=== PATIENT | female | born 1940 | race Caucasian/White ===

== ENCOUNTER 2016-12-11 07:18 | Emergency (ER) | payer OTHER ==
[~2016-12-11] VITALS: Ht 160 cm; Wt 57.8 kg
[~2016-12-11 07:18] MED LIST: ALBUAER2 INH; AMLO2.5T PO; CALCTAB65 PO; CHOL20009 PO; FLVHFA110 INH; LIOT5TAB PO; NXM/40 PO; POLYSOL OP; PRM625 PO
[2016-12-11 07:25] VITALS: TEMP 36.5; Ht 160 cm; Wt 57.8 kg
[2016-12-11] MEDS ORDERED: SODIUM CHLORIDE 0.9% 1000ML 500 ML IV STA (08:09)
--- NOTE | 2016-12-11 08:09 | EMERGENCY ROOM VISIT NOTE ---
History Report prepared by Yani: Susy Matute Under the Supervision of: Anna Sierra.O. First contact with patient: 07:42 Chief Complaint: FLU LIKE SX Stated Complaint: WEAK,SHAKY,CHILLED,HEADACHE,ACHE EVERYWHERE History of Present Illness The patient is a 76 year old female who presents to the Emergency Room with complaints of a persistent illness that began Thursday. She currently rates her discomfort as a 5/10 in severity. The patient states that she has been sick intermittently since October. She states that she was first told that she probably had flu A, but denies being tested for it. The patient states that then she developed bronchitis. She states that then throughout all of November she had asthma complications. The patient states that she was on Prednisone throughout all of November along with her typical asthma nebulizers. She states that one week ago she breathing returned to normal. The patient states that Thursday she began experiencing body aches, nausea, weakness, shakiness, and chills. She states that yesterday she had a decrease in appetite, but states that she has continued to take small sips of fluid. The patient states that she got a flu shot in the fall. She denies any sick contacts. The patient denies any chest pain, cough, rhinorrhea, fever, shortness of breath, vomiting, diarrhea, extremity swelling, or urinary urgency. She states that she has had several kidney infections and UTIs. The patient states that her symptoms today feel similar to the symptoms she experiences with UTIs, but states that she does not have the urinary symptoms. The patient notes a history of one episode of atrial fibrillation three years ago. She denies being on any blood thinners. The patient states that she has a history of a cholecystectomy, and states that at one incision she recently noticed a bump. Source of History: patient Onset: Thursday Position: other (global) Symptom Intensity: 5/10 Quality: other (illness) Timing: other (persistent) Associated Symptoms: + chills, + nausea, + weakness, No SOB, No cough, No diarrhea, No fevers, No urinary symptoms, No vomiting Note: Associated Symptoms: shakiness, body aches Review of Systems See HPI for pertinent positives & negatives. A total of 10 systems reviewed and were otherwise negative. 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) (4) MVP (mitral valve prolapse) (5) PAC (premature atrial contraction) Surgical Problems: (1) History of cholecystectomy Family History FH: cancer FH: gallbladder disease FH: lung disease Hypertension Social History Smoking Status: Never Smoker Alcohol Use: none Drug Use: none Marital Status: Housing Status: lives alone Occupation Status: retired Current/Historical Medications Scheduled Amlodipine (Norvasc), 2.5 MG PO QAM Calcium Carbonate-Vitamin D (Calcium 500 + D), 1 TAB PO QAM Cholecalciferol (Vitamin D), 1 TAB PO QAM Esomeprazole Magnesium (Nexium), 40 MG PO QPM Estrogens, Conjugated (Premarin), 0.625 MG PO QAM Fluticasone Propionate (Flovent Hfa), 2 PUFFS INH BID Liothyronine Sodium (Cytomel), 2.5 MCG PO QAM Scheduled PRN Albuterol (Ventolin), 1 PUFFS INH QID PRN Allergies Coded Allergies: Penicillins (Verified Allergy, Severe, ANAPHYLAXIS, 12/11/16) Quinolones (Verified Allergy, Mild, RASH, 12/11/16) Sulfa Drugs (Verified Allergy, Mild, RASH, 12/11/16) Tetracyclines (Verified Allergy, Mild, RASH, 12/11/16) Aspirin (Verified Allergy, Unknown, SHORTNESS OF BREATH, 12/11/16) Metoprolol (Verified Allergy, Unknown, SHORTNESS OF BREATH, 12/11/16) Physical Exam Vital Signs Date Time Temp Pulse Resp B/P Pulse Ox O2 Delivery O2 Flow Rate FiO2 12/11/16 11:13 103 16 133/76 98 Room Air 12/11/16 11:10 92 162/87 95 146/79 103 133/76 12/11/16 09:29 96 16 157/96 98 12/11/16 07:25 36.5 121 18 143/71 98 Room Air Physical Exam GENERAL: alert, well appearing, well nourished, no distress, non-toxic EYE EXAM: normal conjunctiva, PERRL and EOM's grossly intact OROPHARYNX: no exudate, no erythema, lips, buccal mucosa, and tongue normal and mucous membranes are moist NECK: supple, no nuchal rigidity, no adenopathy, non-tender LUNGS: Clear to auscultation, no wheezing, rhonchi or rales. Normal chest wall mechanics HEART: no murmurs, S1 normal and S2 normal ABDOMEN: abdomen soft, non-tender, normo-active bowel sounds, no masses, no rebound or guarding. Well healed surgical scars noted without induration/ drainage/erythema. BACK: Back is symmetrical on inspection and there is no deformity, no midline tenderness, no CVA tenderness. SKIN: no rashes and no bruising UPPER EXTREMITIES: upper extremities are grossly normal. LOWER EXTREMITIES: No pitting edema. NEURO EXAM: Normal sensorium, cranial nerves II-XII grossly intact, normal speech, no gross weakness of arms, no gross weakness of legs. Medical Decision & Procedures ER Provider Diagnostic Interpretation: US:Per my review, radiologist interpretation. ABDOMINAL ULTRASOUND, RIGHT UPPER QUADRANT HISTORY: Pain. Nausea. elevated lifts. COMPARISON: None. FINDINGS: Pancreas: The pancreas demonstrates a normal echotexture. Liver: Unremarkable. Gallbladder: Surgically absent CBD: 5 mm Right kidney: No hydronephrosis. IMPRESSION: Normal study status post cholecystectomy Electronically signed by: Aldo Delong M.D. 12/11/2016 10:46 AM Dictated Date/Time: 12/11/2016 10:45 AM Laboratory Results 12/11/16 08:25 Red Blood Count 4.00, Mean Corpuscular Volume 90.8, Mean Corpuscular Hemoglobin 30.0, Mean Corpuscular Hemoglobin Concent 33.1, Mean Platelet Volume 8.7, Neutrophils (%) (Auto) 69.6, Lymphocytes (%) (Auto) 16.7, Monocytes (%) (Auto) 10.0, Eosinophils (%) (Auto) 2.7, Basophils (%) (Auto) 0.4, Neutrophils # (Auto ) 5.70, Lymphocytes # (Auto) 1.37, Monocytes # (Auto) 0.82, Eosinophils # (Auto ) 0.22, Basophils # (Auto) 0.03 12/11/16 08:25 Test 12/11/16 07:41 12/11/16 08:25 12/11/16 08:27 Urine Color YELLOW Urine Appearance CLOUDY (CLEAR) Urine pH 6.5 (4.5-7.5) Urine Specific [place] 1.006 (1.000-1.030) Urine Protein NEG (NEG) Urine Glucose (UA) NEG (NEG) Urine Ketones NEG (NEG) Urine Occult Blood NEG (NEG) Urine Nitrite NEG (NEG) Urine Bilirubin NEG (NEG) Urine Urobilinogen NEG (NEG) Urine Leukocyte Esterase NEG (NEG) Urine WBC (Auto) 0 /hpf (0-5) Urine RBC (Auto) 0-4 /hpf (0-4) Urine Hyaline Casts (Auto) 0 /lpf (0-5) Urine Epithelial Cells (Auto) >30 /lpf (0-5) Urine Bacteria (Auto) NEG (NEG) White Blood Count 8.19 K/uL (4.8-10.8) Red Blood Count 4.00 M/uL (4.2-5.4) Hemoglobin 12.0 g/dL (12.0-16.0) Hematocrit 36.3 % (37-47) Mean Corpuscular Volume 90.8 fL (80-100) Mean Corpuscular Hemoglobin 30.0 pg (25-34) Mean Corpuscular Hemoglobin Concent 33.1 g/dl (32-36) Platelet Count 337 K/uL (130-400) Mean Platelet Volume 8.7 fL (7.4-10.4) Neutrophils (%) (Auto) 69.6 % Lymphocytes (%) (Auto) 16.7 % Monocytes (%) (Auto) 10.0 % Eosinophils (%) (Auto) 2.7 % Basophils (%) (Auto) 0.4 % Neutrophils # (Auto) 5.70 K/uL (1.4-6.5) Lymphocytes # (Auto) 1.37 K/uL (1.2-3.4) Monocytes # (Auto) 0.82 K/uL (0.11-0.59) Eosinophils # (Auto) 0.22 K/uL (0-0.5) Basophils # (Auto) 0.03 K/uL (0-0.2) RDW Standard Deviation 44.0 fL (36.4-46.3) RDW Coefficient of Variation 13.2 % (11.5-14.5) Immature Granulocyte % (Auto) 0.6 % Immature Granulocyte # (Auto) 0.05 K/uL (0.00-0.02) Anion Gap 10.0 mmol/L (3-11) Est Creatinine Clear Calc Drug Dose 55.7 ml/min Estimated GFR () 96.9 Estimated GFR (Non- 83.6 BUN/Creatinine Ratio 12.6 (10-20) Calcium Level 8.2 mg/dl (8.5-10.1) Total Bilirubin 0.5 mg/dl (0.2-1) Aspartate Amino Transf (AST/SGOT) 47 U/L (15-37) Alanine Aminotransferase (ALT/SGPT) 61 U/L (12-78) Alkaline Phosphatase 139 U/L (45-117) Total Creatine Kinase 78 U/L (26-192) Troponin I < 0.015 ng/ml (0-0.045) Total Protein 6.6 gm/dl (6.4-8.2) Albumin 3.0 gm/dl (3.4-5.0) Globulin 3.6 gm/dl (2.5-4.0) Albumin/Globulin Ratio 0.8 (0.9-2) Chemistry Specimen Hemolysis Influenza Type A Antigen Neg for Influ A (NEG) Influenza Type B Antigen Neg for Influ B (NEG) Laboratory results per my review. Medications Administered Medications (Trade) Dose Ordered Sig/Delmi Route Start Time Stop Time Status Last Admin Dose Admin Sodium Chloride (Nss 1000ml) 500 ml @ 999 mls/hr Q31M STAT IV 12/11/16 08:09 12/11/16 08:39 DC 12/11/16 08:09 999 MLS/HR Ibuprofen (Advil Tab) 400 mg NOW STAT PO 12/11/16 11:34 12/11/16 11:35 DC 12/11/16 11:39 400 MG ECG Indication: weakness Rate (beats per minute): 96 Rhythm: sinus rhythm Findings: no acute ischemic change, other (normal axis, normal intervals) ED Course 0749: The patient was evaluated in room B5. A complete history and physical examination was performed. 0809: Ordered Sodium Chloride 500 ml @ 999 mls/hr IV. 0939: I reevaluated the patient and she is doing well. I discussed the lab findings with her and she is going to have an ultrasound. 1118: Upon reevaluation, the patient is feeling better.I discussed my findings with the patient and she understands and agrees with the treatment plan. She is going to follow up with her thread inspector tomorrow and will return with any worsening symptoms Based on the patients age, coexisting illnesses, exam and lab findings the decision to treat as an outpatient was made. The patient remained stable while under my care. The patient appeared well at the time of discharge. 1141: I discussed the patient with Case Management and they are going to call and check on the patient tomorrow. Medical Decision The patient is a 76 year old female who presents to the ED with complaints of an illness. Patient markedly improved with IV hydration. Tolerating oral fluids, mildly orthostatic initially however improved with continued oral rehydration. Patient's labs reassuring. No recurrence of any symptoms to suggest asthma exacerbation/arthritis/pneumonia. Patient afebrile here. Doubt bacteremia/sepsis, no evidence of rhabdomyolysis, no evidence of renal dysfunction or electrolyte abnormality. Doubt neurologic or cardiac etiology. Patient offered admission for continued monitoring, but would like to go home and keep her regular scheduled pulmonology appointment tomorrow. Discussed with the patient at length symptoms were to return for, close follow-up with her family doctor when she verbalized understanding was agreeable to plan. Called case management to follow-up with the patient tomorrow as a precaution given the patient does live alone. Impression Primary Impression: Dehydration Additional Impression: Myalgia Scribe Attestation The scribe's documentation has been prepared under my direction and personally reviewed by me in its entirety. I confirm that the note above accurately reflects all work, treatment, procedures, and medical decision making performed by me. Departure Information Dispostion Home / Self-Care Referrals America King CRNP (PCP) Forms HOME CARE DOCUMENTATION FORM, IMPORTANT VISIT INFORMATION Patient Instructions My [facility] Additional Instructions Please continue to sip clear liquids including water at frequent intervals to stay well-hydrated. Please continue regular medications as prescribed. Please continue to monitor for any changes in her condition and if you feel worse please return to the ER immediately. Problem Qualifiers
[2016-12-11 09:05] LABS: BASO % 0.4 %; BASO ABS # 0.03 K/uL (0-0.2); COMPLETE YES; EOS % 2.7 %; HEMATOCRIT 36.3 % (37-47); IG% 0.6 %; LYMPH % 16.7 %; LYMPH ABS # 1.37 K/uL (1.2-3.4); MEAN CELL VOLUME 90.8 fL (80-100); MEAN CORPUSCULAR HGB CONC 33.1 g/dl (32-36); MEAN PLATELET VOLUME 8.7 fL (7.4-10.4); NEUT % 69.6 %; PLATELET COUNT 337 K/uL (130-400); WHITE BLOOD COUNT 8.19 K/uL (4.8-10.8)
[2016-12-11 09:22] LABS: URINE APPEARANCE CLOUDY (CLEAR); URINE BILIRUBIN NEG (NEG); URINE COLOR YELLOW; URINE EPITHELIAL CELL AUTO >30 /lpf (0-5); URINE NITRITE NEG (NEG); URINE PH 6.5 (4.5-7.5); URINE SPECIFIC GRAVITY 1.006 (1.000-1.030); UROBILINOGEN NEG (NEG); ZZUR CULT IF INDIC CLEAN CATCH NO
[2016-12-11 09:27] LABS: MANUAL MICROSCOPIC REQUIRED? NO; REVIEW REQ? NO
[2016-12-11 09:31] LABS: ALB/GLOB RATIO 0.8 (0.9-2); ALKALINE PHOSPHATASE 139 U/L (45-117); ALT/SGPT 61 U/L (12-78); AST/SGOT 47 U/L (15-37); BLOOD UREA NITROGEN 9 mg/dl (7-18); BUN/CREATININE RATIO 12.6 (10-20); CALCIUM 8.2 mg/dl (8.5-10.1); CARBON DIOXIDE 24 mmol/L (21-32); CHLORIDE 104 mmol/L (98-107); GLUCOSE 82 mg/dl (70-99); POTASSIUM 3.9 mmol/L (3.5-5.1); SODIUM 138 mmol/L (136-145)
--- NOTE | 2016-12-11 10:47 | DIAGNOSTIC IMAGING REPORT ---
ABDOMINAL ULTRASOUND, RIGHT UPPER QUADRANT HISTORY: Pain. Nausea. elevated lifts. COMPARISON: None. FINDINGS: Pancreas: The pancreas demonstrates a normal echotexture. Liver: Unremarkable. Gallbladder: Surgically absent CBD: 5 mm Right kidney: No hydronephrosis. IMPRESSION: Normal study status post cholecystectomy Electronically signed by: Aldo Delong M.D. 12/11/2016 10:46 AM Dictated Date/Time: 12/11/2016 10:45 AM
[2016-12-11 11:13] VITALS: BP 133/76; PULSE 103; O2SAT 98
[2016-12-11] MEDS ORDERED: IBUPROFEN 200 MG TAB PO STA (11:34)
== END 2016-12-11 11:46 | disposition home or self-care (01) ==
LOC: C.EDB 07:19
DX: E86.0 Dehydration (principal); M79.1 Myalgia; I48.91 Unspecified atrial fibrillation; I10 Essential (primary) hypertension; I05.9 Rheumatic mitral valve disease, unspecified; Z90.49 Acquired absence of other specified parts of digestive tract; Z79.899 Other long term (current) drug therapy; Z88.0 Allergy status to penicillin; Z88.2 Allergy status to sulfonamides; Z88.6 Allergy status to analgesic agent; Z88.8 Allergy status to other drugs, medicaments and biological substances; Z80.9 Family history of malignant neoplasm, unspecified; Z83.79 Family history of other diseases of the digestive system; Z82.49 Family history of ischemic heart disease and other diseases of the circulatory system

== ENCOUNTER 2017-02-18 15:00 | Emergency (ER) | payer OTHER ==
[~2017-02-18] VITALS: Ht 160.7 cm; Wt 55.1 kg
[~2017-02-18 15:00] MED LIST changes: -POLYSOL OP
[2017-02-18 15:07] VITALS: TEMP 36.7; Ht 160.7 cm; Wt 55.1 kg
[2017-02-18] MEDS ORDERED: SODIUM CHLORIDE 0.9% 1000ML 500 ML IV STA (16:49)
[2017-02-18] MEDS ORDERED: SODIUM CHLORIDE 0.9% 1000ML 1,000 ML IV STA (16:49)
[2017-02-18 17:22] LABS: PARTIAL THROMBOPLASTIN RATIO 1.2; PROTHROMBIN TIME (PATIENT) 10.3 SECONDS (9.0-12.0)
[2017-02-18 17:24] LABS: BASO % 0.4 %; BASO ABS # 0.03 K/uL (0-0.2); COMPLETE YES; HEMATOCRIT 38.6 % (37-47); IG% 0.1 %; LYMPH % 43.4 %; LYMPH ABS # 3.04 K/uL (1.2-3.4); MEAN CELL VOLUME 90.6 fL (80-100); MEAN CORPUSCULAR HEMOGLOBIN 30.3 pg (25-34); MEAN CORPUSCULAR HGB CONC 33.4 g/dl (32-36); MEAN PLATELET VOLUME 9.1 fL (7.4-10.4); MONO % 8.6 %; NEUT % 45.5 %; PLATELET COUNT 296 K/uL (130-400); RED BLOOD COUNT 4.26 M/uL (4.2-5.4)
[2017-02-18 17:35] LABS: ALT/SGPT 23 U/L (12-78); BLOOD UREA NITROGEN 16 mg/dl (7-18); BUN/CREATININE RATIO 21.8 (10-20); CARBON DIOXIDE 27 mmol/L (21-32); CHLORIDE 104 mmol/L (98-107); CREATININE 0.72 mg/dl (0.60-1.20); GLUCOSE 81 mg/dl (70-99); MAGNESIUM 2.2 mg/dl (1.8-2.4); POTASSIUM 3.4 mmol/L (3.5-5.1); SODIUM 141 mmol/L (136-145)
[2017-02-18 17:37] LABS: URINE APPEARANCE CLEAR (CLEAR); URINE BILIRUBIN NEG (NEG); URINE COLOR YELLOW; URINE EPITHELIAL CELL AUTO >30 /lpf (0-5); URINE NITRITE NEG (NEG); URINE SPECIFIC GRAVITY 1.019 (1.000-1.030); UROBILINOGEN NEG (NEG)
[2017-02-18 17:41] LABS: MANUAL MICROSCOPIC REQUIRED? NO; REVIEW REQ? NO
--- NOTE | 2017-02-18 17:43 | DIAGNOSTIC IMAGING REPORT ---
SINGLE VIEW CHEST CLINICAL HISTORY: Generalized weakness. FINDINGS: An AP, portable, upright chest radiograph is compared to study dated 09/28/2015. The examination is degraded by portable technique and patient rotation. The heart is enlarged and there is atherosclerotic calcification of the thoracic aorta. Pulmonary vasculature is noncongested. Chronic interstitial thickening is unchanged. There is no airspace consolidation or large pleural effusion. There is minimal left basilar atelectasis. No pneumothorax is seen. The skeletal structures are osteopenic. The bony thorax is grossly intact. IMPRESSION: Cardiomegaly with no active disease in the chest. Electronically signed by: Len Amaya M.D. 02/18/2017 5:42 PM Dictated Date/Time: 02/18/2017 5:41 PM
[2017-02-18 17:45] LABS: ALB/GLOB RATIO 1.2 (0.9-2); ALKALINE PHOSPHATASE 66 U/L (45-117); AST/SGOT 19 U/L (15-37); CKMB/CK RATIO 1.2 (0-3.0)
[2017-02-18] MEDS ORDERED: FAMO20TA11 PO (17:55)
[2017-02-18 18:07] VITALS: PULSE 68; O2SAT 99
[2017-02-18 18:31] VITALS: BP 170/85
--- NOTE | 2017-02-18 20:15 | DIAGNOSTIC IMAGING REPORT ---
CT SCAN OF THE ABDOMEN AND PELVIS WITHOUT IV CONTRAST CLINICAL HISTORY: Generalized abdominal pain. Melanotic stool. COMPARISON STUDY: Abdominal ultrasound dated 12/11/2016. TECHNIQUE: CT scan of the abdomen and pelvis is performed from the lung bases to the proximal femora. Images are reviewed in the axial, sagittal, and coronal planes. IV contrast was not administered for this examination as per the referring clinician. Note that the examination was performed in suboptimal fashion without IV contrast. Oral contrast was utilized. Automated dose control exposure was utilized. CT DOSE: 259.80 mGy.cm FINDINGS: Lung bases: The heart is normal in size and without pericardial effusion. A fat-containing Bochdalek hernia is noted at the right lung base. There is bibasilar scarring versus atelectasis. No airspace consolidation or pleural effusion is seen. Liver: The unenhanced liver is normal in size, contour, and attenuation. There is no intrahepatic biliary ductal dilatation. Gallbladder: Surgically absent. Spleen: Normal in size and attenuation. Pancreas: The unenhanced pancreas is moderately atrophic and grossly unremarkable. Adrenal glands: Unremarkable. Kidneys: The unenhanced kidneys demonstrate mild cortical atrophy and are without hydronephrosis. There are no renal calculi identified. There is no evidence of contour deforming renal mass lesion. Abdominal vasculature: The abdominal aorta is normal in course and caliber. Bowel: The small bowel and colon are normal in course and caliber. There is diverticulosis of the right colon without CT evidence of acute diverticulitis. The appendix is not clearly identified. Peritoneum: There is no intraperitoneal free air or abdominal ascites. There is a small fat-containing umbilical hernia. Lymphadenopathy: None. Pelvic viscera: The bladder is normal in appearance. The uterus is surgically absent. No adnexal lesion is seen. There is a 2.5 cm ovoid low-density left presacral soft tissue lesion seen on image #[id number]. Skeletal structures: The skeletal structures are osteopenic. There is mild to moderate lumbar sacral spondylosis. There is a mild and age indeterminant superior endplate compression deformity of T10. No lytic or blastic lesions are seen. IMPRESSION: 1. Suboptimal examination without IV contrast. 2. There are no acute infectious or inflammatory findings in abdomen or pelvis. 3. There is a mild and age indeterminant superior endplate compression deformity of T10. Correlate for point tenderness at this site. 4. There is a 2.5 cm ovoid low-density left presacral soft tissue lesion. 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 If further evaluation is desired then a nonemergent contrast-enhanced MRI of the sacrum would be appropriate. 5. Diverticulosis of the right colon without CT evidence of acute diverticulitis. 6. Additional findings as above. Electronically signed by: Len Amaya M.D. 02/18/2017 8:14 PM Dictated Date/Time: 02/18/2017 8:05 PM
--- NOTE | 2017-02-18 20:33 | EMERGENCY ROOM VISIT NOTE ---
History First contact with patient: 16:19 Chief Complaint: GI ASSESSMENT Stated Complaint: DIGESTIVE/WEAK Nursing Triage Summary: Patient presents to triage with c/o tarry stools for the last week States she was seen in December for weakness by the ED and since then her hemoglobin and hematocrit have been low as an outpatient She reprots that she is on iron History of Present Illness Patient is a 76-year-old white female with past medical history significant for hypertension, A. fib (not presently anticoagulated), hypertension, GERD/Jean' s esophagus, asthma and bronchiectasis, among other problems who presents to emergency department for evaluation of tarry stools and weakness over the last 3 -4 days. The patient reports that she has been feeling poorly for the last several months. She was ill for the first part of this year for primarily respiratory issues. She is followed by Dr. Cuba with heme/onc for MGUS, and in follow-up with him, had B found to be mildly anemic in December of this year. She was started on iron replacement 325 mg daily in January. Most recent blood work had shown her H&H had improved. Patient reports noticing dark, tarry stools 2 days ago. She denies any diarrhea or grossly bloody stools. She states that the stools have been formed, and today they were 50% brown and normal and 50% tarry. She has been generally weak for some time, she states similar to when she was seen in our emergency department in December. Today she had a near syncopal episode walking into the hair salon. She states that she felt poorly when she got out of the car and walked into the salon and sat down. She felt better after a soda and roughly 10 minutes of being of sitting. She continues to note primarily GI issues. She states that she has discomfort from her mid sternal to her epigastric area. She has pain after she eats, and has been only eating rice, bananas, ice cream and drinking Boost supplements. She is status post cholecystectomy. She is on Nexium twice a day. She had an EGD around a year ago which showed stable Jean's disease. Colonoscopy 2 years ago was clear. She has a history of A. fib, but is not presently on any anticoagulation, she has an an aspirin allergy, and could not tolerate Xarelto and Eliquis. She was having some shortness of breath earlier in the year and had a negative stress test last week, and a CT scan which showed early, mild bronchiectasis. Patient denies any nausea or vomiting. She presently rates her discomfort a 0/10. She is planning on driving cross-country with her daughter to relocate to [place] tomorrow. Review of Systems Review of systems as per HPI. All other systems reviewed were negative. 10 systems reviewed. Past Medical/Surgical History Medical Problems: (1) A-fib (2) Asthma, Unspecified (3) Jean's esophagus (4) Bronchiectasis (5) Concussion (6) Dehydration (7) HTN (hypertension) (8) Hypertension (9) Hypothyroidism, Unspecified (10) MGUS (monoclonal gammopathy of unknown significance) (11) MVP (mitral valve prolapse) (12) Myalgia (13) PAC (premature atrial contraction) (14) Shoulder pain (15) Weakness Surgical Problems: (1) History of cholecystectomy (2) History of hysterectomy Electronic medical records are reviewed and summarized as above/below. See Problem List. Family History FH: cancer FH: gallbladder disease FH: lung disease Hypertension Social History Smoking Status: Never Smoker Alcohol Use: none Drug Use: none Marital Status: Housing Status: lives alone Occupation Status: retired Current/Historical Medications Scheduled Amlodipine (Norvasc), 2.5 MG PO QAM Calcium Carbonate-Vitamin D (Calcium 500 + D), 1 TAB PO QAM Cholecalciferol (Vitamin D), 1 TAB PO QAM Esomeprazole Magnesium (Nexium), 40 MG PO QPM Estrogens, Conjugated (Premarin), 0.625 MG PO QAM Fluticasone Propionate (Flovent Hfa), 2 PUFFS INH BID Liothyronine Sodium (Cytomel), 2.5 MCG PO QAM Scheduled PRN Albuterol (Ventolin), 1 PUFFS INH QID PRN Miscellaneous Medications Famotidine (Pepcid), 20 MG PO Allergies Coded Allergies: Penicillins (Verified Allergy, Severe, ANAPHYLAXIS, 12/11/16) Quinolones (Verified Allergy, Mild, RASH, 12/11/16) Sulfa Drugs (Verified Allergy, Mild, RASH, 12/11/16) Tetracyclines (Verified Allergy, Mild, RASH, 12/11/16) Aspirin (Verified Allergy, Unknown, SHORTNESS OF BREATH, 12/11/16) Metoprolol (Verified Allergy, Unknown, SHORTNESS OF BREATH, 12/11/16) Physical Exam Vital Signs Date Time Temp Pulse Resp B/P Pulse Ox O2 Delivery O2 Flow Rate FiO2 02/18/17 18:31 170/85 02/18/17 18:07 68 19 99 02/18/17 18:03 162/80 02/18/17 17:37 64 17 166/98 100 02/18/17 17:37 63 166/98 100 02/18/17 17:20 66 02/18/17 17:08 61 169/90 65 173/87 65 180/103 02/18/17 15:07 36.7 78 18 136/91 97 Room Air Physical Exam CONSTITUTIONAL: Patient is a thin, well-appearing 76-year-old white female who is awake and alert and in no acute distress. EYES: Pupils equal, round, reactive to light and accommodation. EOMs intact without nystagmus. Sclera are anicteric. ENT: Tympanic membranes intact, with normal landmarks. External canals are clear. Oral and nasopharynx are clear. Mucous membranes are moist, no lesions , tongue and gums appear normal. NECK: No bruits auscultated. Supple without lymphadenopathy. No thyromegaly. No meningeal signs. Full active range of motion without discomfort. CARDIOVASCULAR: Irregular rate and rhythm, with normal S1 and S2, no murmur or gallop or rub is heard. No carotid bruits auscultated. No JVD. Peripheral pulses easy to palpable. RESPIRATORY: Breath sounds equal and clear to auscultation without wheezes, rales, or rhonchi heard. Full and equal chest expansion without accessory muscle use or retractions. GI: Bowel sounds are present. Abdomen is soft, nondistended, slightly tender in the upper abdomen in the epigastric region. No organomegaly. No pulsatile masses. No guarding or rebound. RECTAL EXAM: No masses or tenderness, normal rectal tone. There is no stool in the rectal vault, Hemoccult testing is negative. MUSCULOSKELETAL: Full range of motion of extremities x 4 with good strength. No cyanosis, edema, joint tenderness or swelling. No deformity. INTEGUMENTARY: No lesions or rash, normal skin turgor. NEUROLOGICAL: Alert, oriented, and cooperative. Cranial nerves, sensation and strength grossly intact. Pupils round, equal, and react to light, EOMs are full. LYMPH: No lymphadenopathy. Medical Decision & Procedures ER Provider Diagnostic Interpretation: SINGLE VIEW CHEST CLINICAL HISTORY: Generalized weakness. FINDINGS: An AP, portable, upright chest radiograph is compared to study dated 09/28/2015. The examination is degraded by portable technique and patient rotation. The heart is enlarged and there is atherosclerotic calcification of the thoracic aorta. Pulmonary vasculature is noncongested. Chronic interstitial thickening is unchanged. There is no airspace consolidation or large pleural effusion. There is minimal left basilar atelectasis. No pneumothorax is seen. The skeletal structures are osteopenic. The bony thorax is grossly intact. IMPRESSION: Cardiomegaly with no active disease in the chest. CT SCAN OF THE ABDOMEN AND PELVIS WITHOUT IV CONTRAST CLINICAL HISTORY: Generalized abdominal pain. Melanotic stool. COMPARISON STUDY: Abdominal ultrasound dated 12/11/2016. TECHNIQUE: CT scan of the abdomen and pelvis is performed from the lung bases to the proximal femora. Images are reviewed in the axial, sagittal, and coronal planes. IV contrast was not administered for this examination as per the referring clinician. Note that the examination was performed in suboptimal fashion without IV contrast. Oral contrast was utilized. Automated dose control exposure was utilized. CT DOSE: 259.80 mGy.cm FINDINGS: Lung bases: The heart is normal in size and without pericardial effusion. A fat-containing Bochdalek hernia is noted at the right lung base. There is bibasilar scarring versus atelectasis. No airspace consolidation or pleural effusion is seen. Liver: The unenhanced liver is normal in size, contour, and attenuation. There is no intrahepatic biliary ductal dilatation. Gallbladder: Surgically absent. Spleen: Normal in size and attenuation. Pancreas: The unenhanced pancreas is moderately atrophic and grossly unremarkable. Adrenal glands: Unremarkable. Kidneys: The unenhanced kidneys demonstrate mild cortical atrophy and are without hydronephrosis. There are no renal calculi identified. There is no evidence of contour deforming renal mass lesion. Abdominal vasculature: The abdominal aorta is normal in course and caliber. Bowel: The small bowel and colon are normal in course and caliber. There is diverticulosis of the right colon without CT evidence of acute diverticulitis. The appendix is not clearly identified. Peritoneum: There is no intraperitoneal free air or abdominal ascites. There is a small fat-containing umbilical hernia. Lymphadenopathy: None. Pelvic viscera: The bladder is normal in appearance. The uterus is surgically absent. No adnexal lesion is seen. There is a 2.5 cm ovoid low-density left presacral soft tissue lesion seen on image #316. Skeletal structures: The skeletal structures are osteopenic. There is mild to moderate lumbar sacral spondylosis. There is a mild and age indeterminant superior endplate compression deformity of T10. No lytic or blastic lesions are seen. IMPRESSION: 1. Suboptimal examination without IV contrast. 2. There are no acute infectious or inflammatory findings in abdomen or pelvis. 3. There is a mild and age indeterminant superior endplate compression deformity of T10. Correlate for point tenderness at this site. 4. There is a 2.5 cm ovoid low-density left presacral soft tissue lesion. 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 If further evaluation is desired then a nonemergent contrast-enhanced MRI of the sacrum would be appropriate. 5. Diverticulosis of the right colon without CT evidence of acute diverticulitis. 6. Additional findings as above. Laboratory Results 02/18/17 17:16 Red Blood Count 4.26, Mean Corpuscular Volume 90.6, Mean Corpuscular Hemoglobin 30.3, Mean Corpuscular Hemoglobin Concent 33.4, Mean Platelet Volume 9.1, Neutrophils (%) (Auto) 45.5, Lymphocytes (%) (Auto) 43.4, Monocytes (%) (Auto) 8.6, Eosinophils (%) (Auto) 2.0, Basophils (%) (Auto) 0.4, Neutrophils # (Auto) 3.18, Lymphocytes # (Auto) 3.04, Monocytes # (Auto) 0.60, Eosinophils # (Auto) 0.14, Basophils # (Auto) 0.03 02/18/17 17:00 Test 02/18/17 17:00 02/18/17 17:12 02/18/17 17:16 Prothrombin Time 10.3 SECONDS (9.0-12.0) Prothromb Time International Ratio 1.0 (0.9-1.1) Activated Partial Thromboplast Time 30.1 SECONDS (21.0-31.0) Partial Thromboplastin Ratio 1.2 Anion Gap 10.0 mmol/L (3-11) Est Creatinine Clear Calc Drug Dose 54.8 ml/min Estimated GFR () 93.6 Estimated GFR (Non- 80.8 BUN/Creatinine Ratio 21.8 (10-20) Calcium Level 9.0 mg/dl (8.5-10.1) Magnesium Level 2.2 mg/dl (1.8-2.4) Total Bilirubin 0.3 mg/dl (0.2-1) Aspartate Amino Transf (AST/SGOT) 19 U/L (15-37) Alanine Aminotransferase (ALT/SGPT) 23 U/L (12-78) Alkaline Phosphatase 66 U/L (45-117) Total Creatine Kinase 113 U/L (26-192) Creatine Kinase MB 1.3 ng/ml (0.5-3.6) Creatine Kinase MB Ratio 1.2 (0-3.0) Troponin I < 0.015 ng/ml (0-0.045) Total Protein 6.4 gm/dl (6.4-8.2) Albumin 3.5 gm/dl (3.4-5.0) Globulin 2.9 gm/dl (2.5-4.0) Albumin/Globulin Ratio 1.2 (0.9-2) Lipase 154 U/L (73-393) Thyroid Stimulating Hormone (TSH) 2.290 uIu/ml (0.300-4.500) Urine Color YELLOW Urine Appearance CLEAR (CLEAR) Urine pH 5.0 (4.5-7.5) Urine Specific Spelter 1.019 (1.000-1.030) Urine Protein TRACE (NEG) Urine Glucose (UA) NEG (NEG) Urine Ketones NEG (NEG) Urine Occult Blood NEG (NEG) Urine Nitrite NEG (NEG) Urine Bilirubin NEG (NEG) Urine Urobilinogen NEG (NEG) Urine Leukocyte Esterase NEG (NEG) Urine WBC (Auto) 1-5 /hpf (0-5) Urine RBC (Auto) 0-4 /hpf (0-4) Urine Hyaline Casts (Auto) 1-5 /lpf (0-5) Urine Epithelial Cells (Auto) >30 /lpf (0-5) Urine Bacteria (Auto) NEG (NEG) White Blood Count 7.00 K/uL (4.8-10.8) Red Blood Count 4.26 M/uL (4.2-5.4) Hemoglobin 12.9 g/dL (12.0-16.0) Hematocrit 38.6 % (37-47) Mean Corpuscular Volume 90.6 fL (80-100) Mean Corpuscular Hemoglobin 30.3 pg (25-34) Mean Corpuscular Hemoglobin Concent 33.4 g/dl (32-36) Platelet Count 296 K/uL (130-400) Mean Platelet Volume 9.1 fL (7.4-10.4) Neutrophils (%) (Auto) 45.5 % Lymphocytes (%) (Auto) 43.4 % Monocytes (%) (Auto) 8.6 % Eosinophils (%) (Auto) 2.0 % Basophils (%) (Auto) 0.4 % Neutrophils # (Auto) 3.18 K/uL (1.4-6.5) Lymphocytes # (Auto) 3.04 K/uL (1.2-3.4) Monocytes # (Auto) 0.60 K/uL (0.11-0.59) Eosinophils # (Auto) 0.14 K/uL (0-0.5) Basophils # (Auto) 0.03 K/uL (0-0.2) RDW Standard Deviation 40.9 fL (36.4-46.3) RDW Coefficient of Variation 12.3 % (11.5-14.5) Immature Granulocyte % (Auto) 0.1 % Immature Granulocyte # (Auto) 0.01 K/uL (0.00-0.02) Medications Administered Medications (Trade) Dose Ordered Sig/Delmi Route Start Time Stop Time Status Last Admin Dose Admin Sodium Chloride 500 ml @ 999 mls/hr Q31M STAT IV 02/18/17 16:49 02/18/17 17:19 DC 02/18/17 17:35 999 MLS/HR Sodium Chloride (Nss 1000ml) 1,000 ml @ 250 mls/hr Q4H STAT IV 02/18/17 16:49 02/18/17 20:48 DC 02/18/17 17:36 250 MLS/HR ECG Indication: weakness Rate (beats per minute): 72 Rhythm: other (SR with PACs with aberrant conduction) Findings: PAC ED Course The patient was seen and assessed as above. Her old records were reviewed. IV lock was initiated and laboratory studies were collected. She was not orthostatic by vital signs. She was hydrated with normal saline solution. She declined any medication needs while in the emergency department. Laboratory studies were collected including urinalysis, CBC with differential, coags, magnesium level, lipase, cardiac enzymes, TSH and CMP. Chest x-ray was obtained and was unremarkable. Laboratory studies revealed a normal white count of 7000, H&H 12.9 and 38.6 with normal indices. Platelet count 296,000, PT/INR are normal. Electrolytes are without significant correctable abnormality. Potassium was 3.4, otherwise electrolytes were normal. Renal function is not elevated., Cardiac enzymes are negative, TSH is indicative of a euthyroid state. Lipase is not indicative of pancreatitis. Urinalysis does not indicate an infection. CT scan of the abdomen and pelvis with oral contrast only, as the patient reports that she cannot have IV contrast due to her MGUS, did not demonstrate any acute pathology. There is no infectious or inflammatory findings in the abdomen or the pelvis. Diverticulosis without diverticulitis was noted. All laboratory and diagnostic imaging studies were reviewed with attending physician, and discussed with the patient at length. She has a long-standing history of GI issues, which have been worse recently, and in discussion with the patient we did question whether her symptoms could be related to her recent initiation of iron therapy. She reported tarry stools, what was Hemoccult negative and H&H is stable, and reportedly improved from prior anemia per the patient. She does not appear to have an acute GI bleed and I suspect the dark stools are related to the iron. Decreasing the iron was discussed with the patient, either halving her dose, or taking every other day. The patient has elected to stop it for the next week or so while she is traveling to see if this helps. She is alert he covered with appropriate dose of a PPI. She's been evaluated thoroughly by her biofuels processing technician, and her symptoms did not appear to be related to a cardiac or a pulmonary source. Differential diagnoses entertained included acute coronary syndrome, arrhythmia, orthostasis, dehydration, electrolyte abnormalities, anemia, hypoglycemia, gastritis, PUD, GERD, esophageal rupture/perforation, esophagitis, pancreatitis, infectious versus inflammatory colitis, among others. Patient reports that she is leaving the area tomorrow, and relocating to [place]. She reports that she will attempt to become established with a primary care provider there as soon as possible. She is well versed on the signs or symptoms for which she should seek immediate medical attention. The patient was discharged home in good condition. Her vital signs were stable at discharge. Medical Decision See ED course. Impression Primary Impression: Upper abdominal pain Additional Impression: Weakness Departure Information Referrals Neisha Arellano DO (PCP) Patient Instructions [facility] Additional Instructions Acetaminophen(Tylenol) may be used for fever or pain. Use 1000mg every eight hours as needed. Avoid using more than 3000mg in a 24 hour period. This is available over the counter. Rest and drink plenty of fluids as tolerated. Slow sips of water or sports drinks are recommended instead of large amounts all at once. Continue current medications. Once your stomach is settled start with a clear liquid diet (jello, soup broth, etc.) and then advance as tolerated. You should avoid full, heavy meals for about 24 hrs from the time your symptoms resolved. Return to the ER immediately for worsening or persistent abdominal pain, vomiting, fevers, chest pains, difficulty breathing, black or bloody stools, worsening of your condition, or as needed. Follow up with your primary physician in 1-2 days for a recheck of your current condition. Problem Qualifiers
--- NOTE | 2017-02-18 23:21 | EMERGENCY ROOM VISIT NOTE ---
ED Visit Note First contact with patient: 16:19 I have personally evaluated this patient examined her and reviewed the pertinent labs and data. I have discussed the case with Monika Wu, the physician hr assistant and agree with the plan. Please refer to the PA note. This patient has had dark tarry stool for about a week. She looks well on exam and has been hemolytically stable. Her abdomen is benign . She has been on iron. Her hemoglobin is 12.9. CAT scan is unremarkable. She feels and would like to go home. She is in fact scheduled to move to [place] tomorrow. She does not want to be admitted or have further workup until she gets out there. Monika, did a rectal exam and tells me that it was guaiac negative. It may be that her stools are dark from the iron but I do think she'll need close follow- up and was encouraged to return if she has blood in her stool, weakness, shortness of breath, any new process concerns. She was happy with plan and discharged to home.
== END 2017-02-18 21:29 | disposition home or self-care (01) ==
LOC: C.EDB 15:04 → C.EDC 21:29
DX: R10.10 Upper abdominal pain, unspecified (principal); R53.1 Weakness; R19.5 Other fecal abnormalities; I49.1 Atrial premature depolarization; I10 Essential (primary) hypertension; I48.91 Unspecified atrial fibrillation; E03.9 Hypothyroidism, unspecified; K22.70 Barrett's esophagus without dysplasia; K21.9 Gastro-esophageal reflux disease without esophagitis; J45.909 Unspecified asthma, uncomplicated; Z87.828 Personal history of other (healed) physical injury and trauma; Z83.79 Family history of other diseases of the digestive system; Z82.49 Family history of ischemic heart disease and other diseases of the circulatory system; Z83.6 Family history of other diseases of the respiratory system; Z79.899 Other long term (current) drug therapy